=== PATIENT | male | born 1990 | race Caucasian/White ===

== ENCOUNTER → 2023-10-12 | Outpatient (CLI) | payer OTHER, SELFPAY | END | disposition home or self-care (01) | LOC: LAB 14:25 | PROVIDERS: PCP Pediatrics; Referring Provider Advanced Practice Midwife; Visit Provider Advanced Practice Midwife | DX: Z01.83 Encounter for blood typing (principal) | CPT/HCPCS: 36415; 86850; 86900; 86901 ==